=== PATIENT | female | born 1965 | race Caucasian/White ===

== ENCOUNTER 2018-11-15 14:02 | Emergency (ER) | payer BC ==
[2018-11-15] MEDS ORDERED: Aspirin Chewable 81 MG TAB ONE (14:38)
[2018-11-15 15:12] LABS: ALT (SGPT) 10 U/L (8-55); AST (SGOT) 15 U/L (5-34); Albumin 4.3 g/dL (3.5-5.0); Alkaline Phosphatase 58 U/L (40-150); Anion Gap 15 mmol/L (10-20); BUN (Urea Nitrogen) 8 mg/dL (9.8-20.1); Bilirubin, Total 0.6 mg/dL (0.2-1.2); Calc. Creatinine Clearance 0 mL/min (70-130); Calcium 9.5 mg/dL (7.8-10.44); Carbon Dioxide 22 mmol/L (22-29); Chloride 107 mmol/L (98-107); Estimated GFR-MDRD 77; Globulin 2.8 g/dL (2.4-3.5); Glucose 91 mg/dL (70-105); Lipase 6 U/L (8-78); Potassium 3.9 mmol/L (3.5-5.1); Protein, Total 7.1 g/dL (6.0-8.3); Sodium 140 mmol/L (136-145)
[2018-11-15 15:13] LABS: Hemoglobin 15.1 g/dL (12.0-16.0); Lymphocytes 33 % (21-51); MDiff Complete? YES; Mean Corpuscular HGB CONC 33.7 g/dL (32.0-36.0); Mean Corpuscular Hemoglobin 29.7 pg (27.0-31.0); Mean Corpuscular Volume 88.1 fL (78.0-98.0); Mean Platelet Volume 7.1 fL (7.4-10.4); Monocytes 5 % (0-10); Neutrophil 61 % (42-75); Platelet Count 292 thou/uL (130-400); Platelet Morphology Comment Appears Adequate; RBC Distribution Width 12.4 % (11.5-14.5); Red Blood Cell (RBC) Count 5.08 mill/uL (4.20-5.40); White Blood Cell (WBC) Count 6.2 thou/uL (4.8-10.8)
--- NOTE | 2018-11-15 15:14 | RAD ---
EXAM: Chest PA and lateral: HISTORY: Shortness of breath. COMPARISON: None FINDINGS: Heart: Normal cardiac silhouette Aorta: Unremarkable Pulmonary vessels: Normal Costophrenic angles: Costophrenic angles are clear. Lungs: Hyperinflation. No masses or consolidation. Pneumothorax: No pneumothorax Osseous structures: No osseous abnormalities IMPRESSION: 1. No acute cardiopulmonary process. 2. Hyperinflation.
[2018-11-15 18:30] LABS: Troponin I 0.018 ng/mL (< 0.028)
== END 2018-11-15 19:02 | disposition home or self-care (01) ==
LOC: SCSER 14:02
DX: F41.9 Anxiety disorder, unspecified (principal); R20.2 Paresthesia of skin; Z71.6 Tobacco abuse counseling; F32.9 Major depressive disorder, single episode, unspecified; F17.210 Nicotine dependence, cigarettes, uncomplicated; Z79.899 Other long term (current) drug therapy
CPT/HCPCS: 36415; 71046; 80053; 83690; 84484; 85025; 85379; 93005; 99406

== ENCOUNTER 2019-10-30 14:14 | Outpatient (CLI) | payer BC ==
--- NOTE | 2019-10-30 15:02 | CT ---
CT abdomen and pelvis without and with IV contrast HISTORY: Hematuria. FINDINGS: Each renal collecting system, ureter, and urinary bladder are decompressed without stone ev ident. No filling defects are apparent within the urinary system on the delayed images. Small cysts throughout the liver are present, measuring up to 0.8 cm at the dome of the right liver l obe. Lobular low-density fibroids arise from the uterine myometrium, measuring up to 1.9 cm greatest diameter on the left side of the uterine body. Diverticula arise from the colon without adjacent inflammation. Thin irregular hyperdensity along the posterior aspect of the lower rectum has the appearance of a suture row. No evidence of bowel obstruction or inflammation. IMPRESSION : No urinary tract abnormalities are demonstrated. Mild fibroid involvement of the uterus. Mild diverticulosis. No evidence of diverticulitis.
== END 2019-10-30 14:15 | disposition home or self-care (01) ==
LOC: SCSCT 14:14
PROVIDERS: ATTEND Family Medicine
DX: R31.29 Other microscopic hematuria (principal); K57.30 Diverticulosis of large intestine without perforation or abscess without bleeding; D25.9 Leiomyoma of uterus, unspecified
CPT/HCPCS: 74178

== ENCOUNTER 2022-02-02 11:04 | Outpatient (CLI) | payer BC | END 2022-02-02 11:05 | disposition home or self-care (01) | LOC: NM 11:04 | PROVIDERS: ATTEND Family Medicine | DX: R10.11 Right upper quadrant pain (principal) | CPT/HCPCS: 78227; A9537 ==

== ENCOUNTER 2023-02-19 09:33 | Outpatient (CLI) | payer BC | END 2023-02-19 09:34 | disposition home or self-care (01) | LOC: BICCT 09:33 | PROVIDERS: ATTEND Family Medicine | DX: R51.9 Headache, unspecified (principal) ==